=== PATIENT | male | born 1990 | race Caucasian/White ===

== ENCOUNTER → 2021-02-10 14:20 | Outpatient (CLI) | payer OTHER, SELFPAY ==
[2021-02-10 15:04] LABS: COVID19 -Nasal RAPID Negative (Negative)
== END ==
PROVIDERS: Visit Provider Specialist
DX: Z20.822 Contact with and (suspected) exposure to COVID-19 (principal); D40.11 Neoplasm of uncertain behavior of right testis; N50.3 Cyst of epididymis
CPT/HCPCS: 87635; 99215

== ENCOUNTER 2021-02-13 09:13 | Day surgery (SDC) | payer OTHER, SELFPAY ==
[2021-02-11 08:14] VITALS: BMI 25.4
[2021-02-13] VITALS (7 sets, daily range): BP systolic 117–138; BP diastolic 70–87; PULSE 71–85; RESP 12–17; TEMP 36.4–37.2; O2SAT 99–100; BMI 25.4
--- NOTE | 2021-02-13 | PATH_ITS ---
[facility] Accession Number: [id number] . 01 Material submitted: . testis - RIGHT TESTICLE AND CORD . 02 Diagnosis: Right Testicle and Cord, Orchiectomy: Seminoma; see Cancer Case Summary. . . Cancer Case Summary - Testis . Specimen laterality: Right. Tumor focality: Unifocal. Tumor size: 3.7 cm in greatest dimension. Additional tumor nodules: Not applicable. Histologic type: Seminoma (pure, classical). Tumor extent: Limited to testis. Lymphovascular invasion: Not identified. Margins Margin status: All margins negative for tumor. Regional lymph nodes Regional lymph node status: Not applicable (no regional lymph nodes submitted). Pathologic stage classification (pTNM, AJCC 8th edition): PT category: pT1b. PN category: pN not assigned (no nodes submitted). 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 [facility] 02/19/2021 1513 Local . 02 Comment: As part of routine quality reviewer, Dr. Hopkins has reviewed this case and agrees with the diagnosis of seminoma. . 02 Electronically signed: . Hernan Squires MD, PhD, Pathologist NPI- [id number] . 01 Gross description: . The specimen is received in formalin, labeled right testicle and cord and consists of a 70-gram testicle measuring 6.0 x 3.5 x 2.5 cm and attached spermatic cord measuring 6.0 x 1.8 x 1.0 cm. The external surface is rodriguez-purple with fibrinous adhesions. The specimen is inked blue and sectioned to reveal a 3.7 x 3.5 x 3.0 cm firm darden-white lobulated mass within the testicle abutting but no extending through the tunica albuginea, not involving the epididymis, rete testis, and located greater than 2 cm from the spermatic cord margin. The epididymis measures 4.0 x 0.8 x 0.6 cm. The remaining testicular parenchyma is darden-pink and otherwise unremarkable. [employer] sections are submitted. . A1: Spermatic cord margin, en face. A2: Spermatic cord, mid and distal cross sections. A3: Mass in relation to epididymis. A4: Mass in relation to rete testis. A5-A6: Additional sections of mass. ([id number]) /MRV 02/17/2021 1015 Local . 02 Pathologist provided ICD-10: C62.11 . 02 CPT . 817810 Performed at: 01 [facility] [address] [place] [address], [place], [place] [id number] MD Chris Sheridan MD Phone: [phone] Performed at: 02 [facility] [address] [address] [place], [place] [id number] MD Macrina Hopkins MD Phone: [phone]
[2021-02-13] MEDS: LACTATED RINGERS 1,000 ML 42 ML IV (09:59)
[2021-02-13] MEDS: ACETAMINOPHEN IV 1,000 MG/100 ML VIAL 400 MG IV (10:00)
--- NOTE | 2021-02-13 11:42 | SUR.PREOP ---
Preop / holding now-02/13/21 at 1144am patient informed at 11:450am of another approximate 30 minute delay. Called to inform of delay and state estimate of 2 1/2 hours more til we call for update for ride/etc.
--- NOTE | 2021-02-13 12:21 | PM.PREOP ---
Pre-operative Note Interval Note History & Physical reviewed/Exam performed by Physician: Yes Changes to H&P: No
[2021-02-13] MEDS: CEFAZOLIN 2 GM/20 ML SYRINGE IV (12:45)
[2021-02-13] MEDS: BUPIVACAINE 0.5% (PF) 30 ML, EPINEPHrine 0.15 MG INJ (12:49)
[2021-02-13] MEDS: BUPIVACAINE LIPOSOME 266 MG/20 ML VIAL INJ (12:50)
--- NOTE | 2021-02-13 12:58 | SUR.OPER ---
Supine on padded OR bed, head on pillow, arms secured on padded arm boards at <90 degrees abduction, legs uncrossed, safety belt at thigh, tape over blanket over lower legs.
--- NOTE | 2021-02-13 14:04 | PM.OP.1 ---
Operative Date/Time/Diagnoses Date of procedure: 02/13/21 Time of procedure: 14:04 Pre-op diagnosis: Right testicular neoplasm Post-op diagnosis: same Procedure & Clinicians Procedure: 1. Right radical orchiectomy. Same procedure as scheduled: Yes Indications: 1. Right testicular neoplasm. Surgeon: Holger Quiñonez Click Yes if Unassisted: Yes Anesthesia Type: General and Local (1.33% Exparel.) Operative Notes Findings: 1. Normal lower abdominal and inguinal tissue planes. 2. Relatively enlarged, irregular, and nodular contents of the right testicle (by palpation). Closure Type: primary Specimen(s): other (Right testicle, epididymis, and cord.) Estimated Blood Loss (mL): 1 Blood products transfused: none Procedure in detail: The patient was positioned in supine was administered general anesthetic. The lower abdomen, genitalia, and groin were then prepped and draped in sterile. Solution of 0.5% Marcaine with epinephrine was then used to infiltrate the skin and subcutaneous tissue over the right inguinal canal. An oblique incision was then made over the right inguinal canal and blunt, and cautery dissection were used to divide the layers of fat and Elly's fascia level the external oblique fascia the external oblique fascia was then opened parallel to its fibers along the length of the canal. The ileal inguinal nerve was then identified was carefully freed from the cord and then was gently reflected superiorly for the remainder of the inguinal dissection. Next, the cord was isolated and elevated from the inguinal canal. At the level of the internal ring the cord was divided into 2 bundles and hemostatic clamps were placed proximally and distally the cord was then transected. The 2 individual bundles were then each suture ligated with a 0 silk suture ligature and also a 0 Tycron free tie. Hemostasis was excellent. Next the internal ring was open further by blunt dissection. The right testicle and epididymis were then delivered into and above the right inguinal incision the gubernacular was then carefully divided using blunt and cautery dissection. Hemostasis was excellent. Next, the rectus fascia was closed using a running 2-0 PDS. 1.33% Exparel was used to infiltrate the fascial plane. Next, Elly's fascia was closed using running 2-0 Monocryl. Again Exparel was used to infiltrate the Elly's fascial plane. Next, aseptic inner layer of 2-0 Monocryl was performed. Finally a running subcuticular of 4-0 Monocryl was used to reapproximate the skin. Remainder of the Exparel was used to infiltrate the incision edges and a regional block laterally. The skin surface was then cleaned and dried. Small segment of Telfa pad was trimmed and tailored appropriately to fit over the incision and this was applied appropriately. A transparent Op site dressing was then applied over this for bio occlusive final dressing. Dry sterile fluffs were applied to the right hemiscrotum and the patient was fitted with an athletic supporter the patient was then awakened, transferred to a gurney, and then transferred to recovery in stable condition. Complications: none Post-operative Condition: stable Disposition: PACU Plan for aftercare: Discharge home
[2021-02-13] MEDS: OXYCODONE/ACETAMINOPHEN 5/325 TABLET 1 TAB PO (14:30)
== END 2021-02-13 14:45 | disposition home or self-care (01) ==
PROVIDERS: PCP Student in an Organized Health Care Education/Training Program; Referring Provider Specialist; Visit Provider Specialist
PROC: 0VT90ZZ Resection of Right Testis, Open Approach (ICD-10-PCS; CPT 54520; principal; 2021-02-13 10:45)
DX: C62.11 Malignant neoplasm of descended right testis (principal)
CPT/HCPCS: 54530; 82962; C9290; J0131; J0171; J0690; J1100; J2405; J2704; J3010

== ENCOUNTER → 2021-10-27 10:01 | Outpatient (CLI) | payer OTHER, SELFPAY ==
--- NOTE | 2021-10-27 10:53 | DI.CT.S_ITS ---
PROCEDURE: CT ABDOMEN PELVIS W CON INDICATIONS: seminoma, stage IA TECHNIQUE: After the administration of oral and intravenous contrast, axial sections were acquired from the lung bases to the pubic symphysis. Coronal and sagittal reformats were performed. For radiation dose reduction, the following was used: automated exposure control, adjustment of mA and/or kV according to patient size. COMPARISON:[facility], , CT ABDOMEN/PELVIS WITH CONTRAST, 07/02/2021, 10:16. FINDINGS: Image quality: Excellent. Lung bases: No pleural effusion. ABDOMEN: Liver: Unremarkable. Gallbladder: Unremarkable. Biliary ducts: Unremarkable. Pancreas: Unremarkable. Spleen: Unremarkable. Adrenal Glands: Unremarkable. Kidneys and Ureters: Unremarkable. Stomach and Bowel: No bowel obstruction. Peritoneum: No abnormal intraperitoneal fluid. No free air. Abdominal Nodes: No retroperitoneal or mesenteric adenopathy by size criteria. Vessels: Aorta and inferior vena cava are normal in size. PELVIS: Pelvic Organs: Prior right orchiectomy. Otherwise unremarkable CT appearance. Bladder: Unremarkable. Pelvic Nodes: No enlarged lymph nodes. Bones: No suspicious bony lesion identified. IMPRESSION: No evidence of metastatic disease in the abdomen or pelvis. Dictated by: Tommy Munoz M.D. on 10/27/2021 at 16:17 Approved by: Tommy Munoz M.D. on 10/27/2021 at 16:31
[2021-10-27 13:24] LABS: Add Manual Diff / Slide Review NO; Basophils Absolute Auto 0 /uL (0-100); Basophils Percent Auto 1.3 % (0-2); Eosinophils Absolute Auto 0 /uL (0-450); Eosinophils Percent Auto 0.5 % (2-4); Hematocrit 45.4 % (41-53); Hemoglobin 15.6 g/dL (13.5-17.5); Lymphocytes Absolute Auto 1400 /uL (1100-4500); Lymphocytes Percent Auto 35.2 % (25-40); Mean Corpuscular HGB Conc 34.4 % (30-36); Mean Corpuscular Hemoglobin 31.3 PG (26-34); Monocytes Absolute Auto 300 /uL (0-900); Monocytes Percent Auto 7.6 % (3-14); Neutrophils Absolute Auto 2200 /uL (1500-7000); Neutrophils Percent Auto 55.4 % (50-75); Platelet Count 262 X10^3/uL (150-400); Red Blood Cell Count 4.99 X10^6/uL (4.5-5.9); Red Cell Distribution Width 12.5 % (11.6-14.8); White Blood Cell Count 3.9 X10^3/uL (4.5-11.0)
[2021-10-27 13:44] LABS: Alanine Aminotransferase 26 IU/L (<50); Albumin 4.6 g/dL (3.5-5.0); Albumin Globulin Ratio 1.4 (1.0-2.8); Alkaline Phosphatase 64 U/L (38-126); Aspartate Aminotransferase 31 IU/L (17-59); Bilirubin Total 0.6 mg/dL (0.2-1.3); Blood Urea Nitrogen 13 mg/dL (9-20); Calcium 9.4 mg/dL (8.4-10.2); Carbon Dioxide 29 mmol/L (22-32); Chloride 104 mmol/L (98-107); Estimated Glomerular Filt Rate > 60 mL/min (>60); Globulin 3.4 g/dL (1.7-4.1); Glucose 88 mg/dL (70-100); HEMOLYSIS < 15 (0-50); Potassium 4.5 mmol/L (3.4-5.1); Sodium 140 mmol/L (137-145)
[2021-10-27 14:00] LABS: HCG Quantitative /Beta subunit < 2.4 mIU/mL (<2.40)
== END ==
PROVIDERS: Referring Provider Internal Medicine Hematology & Oncology; Visit Provider Internal Medicine Hematology & Oncology
DX: C62.91 Malignant neoplasm of right testis, unspecified whether descended or undescended (principal)
CPT/HCPCS: 74177; 80053; 82105; 84702; 85025

== ENCOUNTER → 2022-02-10 12:10 | Outpatient (CLI) | payer OTHER, SELFPAY ==
--- NOTE | 2022-02-10 12:12 | DI.RAD.S_ITS ---
PROCEDURE: XR CHEST 2V INDICATIONS: testicular cancer TECHNIQUE: 2 views of the chest were acquired. COMPARISON: [facility], , XR CXR 2V, 02/06/2021, 10:34. FINDINGS: Surgical changes and devices: None. Lungs and pleura: Lungs are clear. No pleural effusions or pneumothorax. Mediastinum: Mediastinal contours are normal. Heart size is normal. Bones and chest wall: No suspicious bony abnormalities. Soft tissues appear unremarkable. IMPRESSION: No acute process. Dictated by: Linda Martines M.D. on 02/10/2022 at 12:55 Approved by: Linda Martines M.D. on 02/10/2022 at 12:56
--- NOTE | 2022-02-10 12:12 | DI.CT.S_ITS ---
PROCEDURE: CT ABDOMEN PELVIS W CON INDICATIONS: testicular cancer TECHNIQUE: After the administration of oral and intravenous contrast, axial sections were acquired from the lung bases to the pubic symphysis. Coronal and sagittal reformats were performed. For radiation dose reduction, the following was used: automated exposure control, adjustment of mA and/or kV according to patient size. COMPARISON:[facility], CT, CT ABDOMEN PELVIS W CON, 10/27/2021, 10:57. FINDINGS: Image quality: Excellent. Lung bases: Unremarkable. Heart: No significant findings. ABDOMEN: Liver: Unremarkable. Gallbladder: Unremarkable. Biliary ducts: Unremarkable. Pancreas: Unremarkable. Spleen: Unremarkable. Adrenal Glands: Unremarkable. Kidneys and Ureters: Unremarkable. Stomach and Bowel: Stomach, small bowel loops, and colon are unremarkable. The appendix is thin walled and gas filled. Peritoneum: No abnormal intraperitoneal fluid. No free air. Ventral Wall: No hernia. Abdominal Nodes: No retroperitoneal or mesenteric adenopathy by size criteria. Vessels: Aorta and inferior vena cava are normal in size. PELVIS: Pelvic Organs: Unremarkable. Bladder: Unremarkable. Pelvic Nodes: No enlarged lymph nodes. Miscellaneous: There is a small fat containing left inguinal hernia. Bones: Unremarkable. IMPRESSION: 1. No findings to suggest metastasis. 2. No acute intra-abdominal findings. Normal appendix. Dictated by: Gwendolyn Salazar M.D. on 02/10/2022 at 15:58 Approved by: Gwendolyn Salazar M.D. on 02/10/2022 at 16:01
== END ==
PROVIDERS: Referring Provider Internal Medicine Hematology & Oncology; Visit Provider Internal Medicine Hematology & Oncology
DX: C62.91 Malignant neoplasm of right testis, unspecified whether descended or undescended (principal); K40.40 Unilateral inguinal hernia, with gangrene, not specified as recurrent
CPT/HCPCS: 71046; 74177; Q9967